=== PATIENT | male | born 1960 | race Caucasian/White ===

== ENCOUNTER → 2017-01-28 | Outpatient (CLI) | payer OTHER ==
--- NOTE | 2017-01-28 15:14 | KCIC ---
Examination: MRI of the right knee without contrast HISTORY: History of right knee pain for 3 months, instability, medial right knee pain COMPARISON: None available TECHNIQUE: Multiplanar, multisequence MR imaging of the right knee was performed without contrast. FINDINGS: The anterior cruciate recommend composted cruciate ligament are intact. There is minimal fraying of the free edge of the medial meniscus body. There is mild free edge fraying of the junction of the body and posterior horn of the lateral meniscus. The medial collateral ligament is intact. Lateral collateral ligamentous complex including the fibular collateral ligament, biceps femoris tendon, popliteus tendon appear intact. The extensor mechanism is intact. Small knee joint effusion is identified. The medial, lateral retinaculum are intact. Small popliteal cyst identified. There is deep fissuring of cartilage identified in the weightbearing portion of the medial compartment. There is minimal superficial fraying of cartilage identified in the lateral, patellofemoral compartments. Mild joint space loss identified in the medial, lateral, patellofemoral compartments likely degenerative changes. IMPRESSION: 1. Mild free edge fraying of the body of the medial meniscus and the junction of the body and posterior horn of the lateral meniscus. 2. 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 3. Small knee joint effusion. 4. Tiny popliteal cyst. Electronically signed by: Jaiden Pretty MD (01/28/2017 3:11 PM) [id number]
--- NOTE | 2017-01-28 15:21 | KCIC ---
MR of the left knee Indication: Left anterior knee pain for 3 months. Crepitus. Technique: The standard multiplanar sequences are obtained. Findings: Medial meniscus:Intact. Lateral meniscus: Minimal signal at the free margin on the single slice, raises the question of a tiny radial tear but is too subtle to be definitive. Otherwise intact. Anterior cruciate ligament: Intact Posterior cruciate ligament: Intact Medial collateral ligament: Intact. Iliotibial band: Intact. Posterolateral structures: Fibular collateral ligament, biceps tendon and popliteus tendon are intact. Extensor mechanism: Intact. Fluid: Small amount of joint fluid. Articular cartilage -patellofemoral joint: Tripartite patella variant. Mild linear interruption of the articular cartilage at the superolateral division. There is mild degenerative cystic change between the fragments suggesting some instability. Moderate chondromalacia at the lower medial femoral trochlea. -medial compartment:Intact -lateral compartment:Intact Bones: No significant lesion or acute fracture. Soft tissue: Very small Laguna's cyst. Impression: 1. Question tiny radial tear of the lateral meniscus. 2. 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 Electronically signed by: Zoltan Roland MD (01/28/2017 3:18 PM) [id number]
== END | disposition home or self-care (01) ==
LOC: KCIC MRI 13:39
PROVIDERS: ATTEND Physician Assistant
DX: M94.262 Chondromalacia, left knee (principal); M94.261 Chondromalacia, right knee; M25.461 Effusion, right knee; M71.22 Synovial cyst of popliteal space [Baker], left knee; M71.21 Synovial cyst of popliteal space [Baker], right knee; Q74.1 Congenital malformation of knee
CPT/HCPCS: 73721